=== PATIENT | female | born 1965 ===

== ENCOUNTER 2017-12-20 11:43 | Day surgery (SDC) | payer BC, OTHER ==
[~2017-12-20] VITALS: Ht 175.3 cm; Wt 95.0 kg
[~2017-12-20 11:43] MED LIST: EPINEPHRINE 1 MG/ML, 1ML ONE; IBUP-1222 PO; LIDOCAINE 1%, 50ML ONE; SIMV10TA3 PO
[2017-12-20] MEDS ORDERED: LACTATED RINGERS 1,000 ML IV SCH (12:12)
[2017-12-20 12:16] VITALS: BP 125/85
[2017-12-20] MEDS ORDERED: FENTANYL PF 250 MCG/5ML ONE (12:17)
[2017-12-20] MEDS ORDERED: MIDAZOLAM 1 MG/ML, 2ML ONE (12:17)
[2017-12-20] MEDS ORDERED: PROPOFOL 10 MG/ML, 20ML ONE (12:20)
[2017-12-20] MEDS ORDERED: ROCURONIUM 10 MG/ML,10ML ONE (12:20)
[2017-12-20] MEDS ORDERED: NEOSTIGMINE 1 MG/ML, 10ML ONE (12:21)
[2017-12-20] MEDS ORDERED: GLYCOPYRROLATE 0.4 MG/2 ML, 2ML ONE (12:21)
[2017-12-20] MEDS ORDERED: CEFAZOLIN 1,000 MG ONE ×2 (12:22)
[2017-12-20] MEDS ORDERED: ONDANSETRON 2MG/ML, 2ML ONE (12:22)
[2017-12-20] MEDS ORDERED: DEXAMETHASONE 4 MG/ML, 1ML ONE ×2 (12:22)
[2017-12-20] MEDS ORDERED: SODIUM CHLORIDE 0.9% PF 10ML ONE (12:22)
[2017-12-20] MEDS ORDERED: ROPIvacaine/PF 0.5%, 30 ML ONE (12:24)
[2017-12-20] MEDS ORDERED: LIDOCAINE 1%, 2ML SQ PRN (12:30)
[2017-12-20] MEDS ORDERED: LABETALOL 5MG/ML, 20ML IV PRN (13:30)
[2017-12-20] MEDS ORDERED: MEPERIDINE/PF 25MG/0.5ML IVPush PRN (13:30)
[2017-12-20] MEDS ORDERED: OXYcodone 5 MG/5 ML ORAL.SOL UDC PO PRN (13:30)
[2017-12-20] MEDS ORDERED: hydrALAzine 20 MG/ML, 1ML IV PRN (13:30)
[2017-12-20] MEDS ORDERED: HYDROmorphone 1 MG/ML, 1ML IV PRN (13:30)
[2017-12-20] MEDS ORDERED: ONDANSETRON 2MG/ML, 2ML IVPush PRN (13:30)
[2017-12-20] MEDS ORDERED: PROMETHAZINE 12.5 MG SUPP PR PRN (13:30)
[2017-12-20] MEDS ORDERED: ACETAMINOPHEN 325 MG TABLET PO PRN (13:30)
[2017-12-20] MEDS ORDERED: CLINDAMYCIN 150 MG/ML, 6ML ONE (13:46)
[2017-12-20] MEDS ORDERED: EPINEPHRINE 1 MG/ML, 1ML ONE ×2 (14:14)
[2017-12-20] MEDS: FENTANYL PF 100 MCG/2ML IV PRN ×3 (14:58→15:11)
[2017-12-20] MEDS ORDERED: ACETAMINOPHEN 650 MG/20.3 ML UDC ONE (14:59)
[2017-12-20] MEDS ORDERED: OXYcodone 5 MG/5 ML ORAL.SOL UDC ONE (15:00)
[2017-12-20] MEDS ORDERED: FENTANYL PF 100 MCG/2ML ONE (15:00)
[2017-12-20] MEDS ORDERED: PROMETHAZINE 25 MG/ML, 1ML ONE (15:37)
[2017-12-20] MEDS ORDERED: PROMETHAZINE 25 MG/ML, 1ML IV PRN (16:00)
== END 2017-12-20 17:50 ==
LOC: OUT 11:43
PROVIDERS: ATTEND Orthopaedic Surgery
DX: S46.011A Strain of muscle(s) and tendon(s) of the rotator cuff of right shoulder, initial encounter (principal); S43.431A Superior glenoid labrum lesion of right shoulder, initial encounter; E78.5 Hyperlipidemia, unspecified; M75.41 Impingement syndrome of right shoulder; M65.811 Other synovitis and tenosynovitis, right shoulder; X50.0XXA Overexertion from strenuous movement or load, initial encounter; Y93.89 Activity, other specified; Y92.39 Other specified sports and athletic area as the place of occurrence of the external cause; Y99.9 Unspecified external cause status
CPT/HCPCS: 29826; 29827; 29999; C1713; J0171; J0690; J1100; J2250; J2405; J2550; J2704; J2710; J2795; J3010; J3490; J7120

== ENCOUNTER → 2019-12-03 | Outpatient (CLI) | payer BC, OTHER ==
[~2019-12-03] MED LIST changes: -EPINEPHRINE 1 MG/ML, 1ML ONE; -LIDOCAINE 1%, 50ML ONE; +SIMV10TA18 PO; -SIMV10TA3 PO
[2019-12-03 10:15] LABS: BASOPHILS # (AUTO) 0.04 x10^3/uL (0-0.1); BASOPHILS % (AUTO) 1 % (0-1); EOSINOPHILS # (AUTO) 0.38 x10^3/uL (0-0.4); EOSINOPHILS % (AUTO) 12 % (1-7); LYMPHOCYTES # (AUTO) 1.26 x10^3/uL (1-3.4); LYMPHOCYTES % (AUTO) 39 % (22-44); MD NO; MEAN CORPUSCULAR HEMOGLOBIN 29.8 pg (27.0-34.8); MEAN CORPUSCULAR HGB CONC 33.8 g/dL (32.4-35.8); MEAN CORPUSCULAR VOLUME 88.2 fL (80-100); MEAN PLATELET VOLUME 8.2 fL (7.4-10.4); MONOCYTES # (AUTO) 0.22 x10^3/uL (0.2-0.8); MONOCYTES % (AUTO) 7 % (2-9); NEUTROPHILS # (AUTO) 1.31 x10^3/uL (1.8-6.8); NEUTROPHILS % (AUTO) 41 % (42-75); PLATELET COUNT 218 x10^3/uL (130-400); RED CELL DISTRIBUTION WIDTH 13.7 % (9.6-15.2)
[2019-12-03 10:17] LABS: INTERNATIONAL NORMALIZED RATIO 0.91 (0.93-1.1); PROTHROMBIN TIME 9.6 Seconds (9.6-11.5)
[2019-12-03 10:18] LABS: ALANINE AMINOTRANSFERASE 19 U/L (12-78); ALBUMIN 3.8 g/dL (3.4-5.0); ANION GAP 5 mmol/L (5-15); CALCIUM 8.6 mg/dL (8.5-10.1); CHLORIDE 112 mmol/L (98-107); CREATININE 0.71 mg/dL (0.55-1.02)
[2019-12-03 10:20] LABS: ALKALINE PHOSPHATASE 77 U/L (45-117); BILIRUBIN,TOTAL 0.4 mg/dL (0.2-1.0); TOTAL PROTEIN 7.2 g/dL (6.4-8.2)
== END | disposition home or self-care (01) ==
LOC: STAR 09:08
PROVIDERS: ATTEND Orthopaedic Surgery
DX: Z01.818 Encounter for other preprocedural examination (principal); M16.12 Unilateral primary osteoarthritis, left hip; M17.11 Unilateral primary osteoarthritis, right knee; M75.21 Bicipital tendinitis, right shoulder; M25.552 Pain in left hip
CPT/HCPCS: 36415; 80053; 83036; 85025; 85610; 85730; 87081; 93005

== ENCOUNTER 2019-12-12 06:48 | Inpatient (IN) | payer BC, OTHER ==
[~2019-12-12] VITALS: Ht 175.3 cm; Wt 93.7 kg
[2019-12-12] MEDS: NS + 20MEQ KCL 1,000 ML IV SCH ×2 (03:00→12:10)
[~2019-12-12 06:48] MED LIST changes: +EPINEPHRINE 1 MG/ML, 1ML ONE; +KETOROLAC 60 MG/2 ML ONE; +ROPIvacaine/PF 0.5%, 20 ML ONE; +ROPIvacaine/PF 0.5%, 30 ML ONE; +SODIUM CHLORIDE 0.9% 50 ML ONE; +TRANEXAMIC ACID 100 MG/ML, 10ML ONE; +VANCOMYCIN 1,000 MG ONE
[2019-12-12] MEDS ORDERED: LACTATED RINGERS 1,000 ML IV SCH (07:19)
[2019-12-12 07:20] VITALS: BP 125/83
[2019-12-12] MEDS ORDERED: ACETAMINOPHEN 500 MG TABLET PO ONE (07:30)
[2019-12-12] MEDS ORDERED: GABAPENTIN 300 MG CAPSULE PO ONE (07:30)
[2019-12-12] MEDS ORDERED: FENTANYL PF 250 MCG/5ML ONE (07:41)
[2019-12-12] MEDS ORDERED: MIDAZOLAM 1 MG/ML, 2ML ONE (07:41)
[2019-12-12] MEDS ORDERED: SCOPOLAMINE 1MG PATCH TD ONE ×2 (08:04→10:37)
[2019-12-12] MEDS ORDERED: CEFAZOLIN PMX 2GM/50ML 50 ML IVPB SCH (08:30)
[2019-12-12] MEDS ORDERED: ZOLPIDEM 5MG TABLET PO PRN (08:30)
[2019-12-12] MEDS ORDERED: SENNA/DOCUSATE TABLET PO PRN (08:30)
[2019-12-12] MEDS ORDERED: ONDANSETRON 2MG/ML, 2ML IV PRN (08:30)
[2019-12-12] MEDS ORDERED: ACETAMINOPHEN 650 MG/20.3 ML UDC PO PRN (08:30)
[2019-12-12] MEDS ORDERED: ONDANSETRON 4 MG TABLET PO PRN (08:30)
[2019-12-12] MEDS ORDERED: BISACODYL 10 MG SUPP PR PRN (08:30)
[2019-12-12] MEDS ORDERED: MAGNESIUM HYDROXIDE 8%, 30ML UDC PO PRN (08:30)
[2019-12-12] MEDS ORDERED: OXYcodone IR 5MG TABLET PO PRN (08:30)
[2019-12-12] MEDS: DOCUSATE 100 MG CAPSULE PO SCH ×2 (09:00→21:45)
[2019-12-12] MEDS ORDERED: hydrALAzine 20 MG/ML, 1ML IV PRN (09:30)
[2019-12-12] MEDS ORDERED: ALBUTEROL SULFATE 2.5 MG/3 ML NPPB PRN (09:30)
[2019-12-12] MEDS ORDERED: OXYcodone 5 MG/5 ML ORAL.SOL UDC PO PRN (09:30)
[2019-12-12] MEDS ORDERED: PROMETHAZINE 25 MG/ML, 1ML IV PRN (09:30)
[2019-12-12] MEDS ORDERED: MEPERIDINE/PF 25MG/0.5ML IVPush PRN (09:30)
[2019-12-12] MEDS ORDERED: KETOROLAC 30 MG/1 ML IV PRN (09:30)
[2019-12-12] MEDS ORDERED: HYDROmorphone 2 MG/ML, 1ML IVPush PRN (09:30)
[2019-12-12] MEDS ORDERED: DIAZEPAM 5 MG/ML, 2ML IVPush PRN (09:30)
[2019-12-12] MEDS ORDERED: LABETALOL 5MG/ML, 20ML IV PRN (09:30)
[2019-12-12] MEDS ORDERED: ACETAMINOPHEN 325 MG TABLET PO PRN (09:30)
[2019-12-12] MEDS ORDERED: FENTANYL PF 100 MCG/2ML ONE (09:31)
[2019-12-12] MEDS ORDERED: OXYcodone 5 MG/5 ML ORAL.SOL UDC ONE ×2 (09:31→10:08)
[2019-12-12] MEDS ORDERED: MEPERIDINE/PF 25MG/ML,1ML ONE (09:31)
[2019-12-12] MEDS: FENTANYL PF 100 MCG/2ML IV PRN ×2 (09:37→09:47)
[2019-12-12] MEDS ORDERED: SUCCINYLCHOLINE 20 MG/ML, 10ML ONE (09:39)
[2019-12-12] MEDS ORDERED: NEOSTIGMINE 1 MG/ML, 10ML ONE (09:39)
[2019-12-12] MEDS ORDERED: PROPOFOL 10 MG/ML, 20ML ONE (09:39)
[2019-12-12] MEDS ORDERED: ONDANSETRON 2MG/ML, 2ML ONE (09:39)
[2019-12-12] MEDS ORDERED: DEXAMETHASONE 4 MG/ML, 1ML ONE (09:39)
[2019-12-12] MEDS ORDERED: CEFAZOLIN 1,000 MG ONE (09:39)
[2019-12-12] MEDS ORDERED: GLYCOPYRROLATE 0.2MG/1ML, 5ML ONE (09:39)
[2019-12-12] MEDS ORDERED: ROCURONIUM 10MG/ML,5ML ONE (09:39)
[2019-12-12] MEDS ORDERED: HYDROmorphone 1 MG/ML, 1ML INJ ONE (10:08)
[2019-12-12 14:57] VITALS: BP 114/73
[2019-12-12] MEDS: HYDROcodone/APAP 5/325 TABLET PO PRN ×2 (15:30→19:28)
[2019-12-12] MEDS: CEFAZOLIN PMX 2GM/50ML 50 ML IVPB SCH (16:56)
[2019-12-12] MEDS: ASPIRIN 81 MG TABLET EC PO SCH (18:04)
[2019-12-12 20:00] VITALS: BP 106/66
[2019-12-12 23:59] VITALS: BP 110/66
[2019-12-13] MEDS: CEFAZOLIN PMX 2GM/50ML 50 ML IVPB SCH (00:32)
[2019-12-13] MEDS: HYDROcodone/APAP 5/325 TABLET PO PRN ×4 (00:32→16:50)
[2019-12-13 03:54] VITALS: BP 103/57
[2019-12-13] MEDS: ASPIRIN 81 MG TABLET EC PO SCH (05:09)
[2019-12-13] MEDS: DIPHENHYDRAMINE 25 MG CAPSULE PO PRN ×2 (05:31→06:59)
[2019-12-13] MEDS ORDERED: DEXAMETHASONE 4 MG/ML, 1ML IVPush SCH (06:00)
[2019-12-13 07:40] VITALS: BP 118/69
[2019-12-13] MEDS: DOCUSATE 100 MG CAPSULE PO SCH (07:50)
[2019-12-13] MEDS: NS + 20MEQ KCL 1,000 ML IV SCH (07:51)
[2019-12-13 13:39] VITALS: BP 108/65
== END 2019-12-13 17:04 | disposition home or self-care (01) | DRG 470 ==
LOC: ORIP 06:48 → 4NE 10:43
PROVIDERS: ADMIT Orthopaedic Surgery; ATTEND Orthopaedic Surgery
PROC: 0SRB06A Replacement of Left Hip Joint with Oxidized Zirconium on Polyethylene Synthetic Substitute, Uncemented, Open Approach (ICD-10-PCS; principal; 2019-12-12 08:45)
DX: M16.12 Unilateral primary osteoarthritis, left hip (principal)
CPT/HCPCS: 36415; 72170; 76000; 85014; 85018; C1713; G0378; J0171; J0690; J1100; J1170; J1885; J2175; J2250; J2405; J2704; J2710; J2795; J3010; J3370; J3480; C1776; J0330; J7120; Q0163